=== PATIENT | male | born 1955 | race Caucasian/White ===

== ENCOUNTER 2017-08-25 16:03 | Emergency (ER) | payer BC ==
[2017-08-25 17:37] VITALS: BP 128/90
--- NOTE | 2017-08-25 18:17 | UC ---
Throat Pain/Nasal Brendan HPI - HPI Summary HPI Summary: Pt c/o nasal congestion sinus congestion and tenderness X 3 weeks. - History of Current Complaint Chief Complaint: UCGeneralIllness Stated Complaint: SINUS Time Seen by Provider: 08/25/17 18:10 Hx Obtained From: Patient Onset/Duration: Gradual Onset, Lasting Weeks - 3 weeks, Still Present, Worse Since - onset Severity: Moderate Pain Intensity: 0 Associated Signs & Symptoms: Positive: Sinus Discomfort - Epiglottits Risk Factors Epiglottis Risk Factors: Negative - Allergies/Home Medications Allergies/Adverse Reactions: Allergies Allergy/AdvReac Type Severity Reaction Status Date / Time No Known Allergies Allergy Verified 08/25/17 17:37 Home Medications: Home Medications Depression Medication 08/25/17 [History] Methylphenidate TAB* [Ritalin TAB*] 08/25/17 [History] PMH/Surg Hx/FS Hx/Imm Hx Previously Healthy: Yes - Surgical History Surgical History: Yes Surgery Procedure, Year, and Place: SINUS SURGERY - Family History Known Family History: Positive: Cardiac Disease - Social History Occupation: Employed Full-time Lives: With Family Alcohol Use: None Substance Use Type: None Smoking Status (MU): Never Smoked Tobacco Have You Smoked in the Last Year: No Review of Systems Constitutional: Chills, Fatigue Skin: Negative Eyes: Negative ENT: Sinus Congestion, Sinus Pain/Tenderness Respiratory: Negative Cardiovascular: Negative Gastrointestinal: Negative Genitourinary: Negative Motor: Negative Neurovascular: Negative Musculoskeletal: Negative Neurological: Headache Psychological: Negative Is Patient Immunocompromised?: No All Other Systems Reviewed And Are Negative: Yes Physical Exam Triage Information Reviewed: Yes Appearance: Well-Appearing Vital Signs: Initial Vital Signs Temp 97.8 F 08/25/17 17:30 Pulse 71 08/25/17 17:30 Resp 18 08/25/17 17:30 BP 128/90 08/25/17 17:30 Pulse Ox 100 08/25/17 17:30 Vital Signs Reviewed: Yes Eye Exam: Normal ENT Exam: Other ENT: Positive: Nasal congestion, Sinus tenderness Dental Exam: Normal Neck exam: Normal Respiratory Exam: Normal Cardiovascular Exam: Normal Musculoskeletal Exam: Normal Neurological Exam: Normal Psychological Exam: Normal Skin Exam: Normal Throat Pain/Nasal Course/Dx - Differential Dx/Diagnosis Differential Diagnosis/HQI/PQRI: Influenza, Sinusitis, URI Provider Diagnoses: Sinusitis Discharge - Discharge Plan Condition: Stable Disposition: HOME Prescriptions: Amoxicillin PO (*) [Amoxicillin 875 MG (*)] 875 mg PO Q12H #20 tab guaiFENesin ER TAB [Mucinex*] 600 mg PO Q12H #14 tab Patient Education Materials: Sinusitis (ED) Referrals: Windy Win MD [Primary Care Provider] - If Needed
== END 2017-08-25 18:27 | disposition home or self-care (01) ==
LOC: UCCORT 16:03
DX: J32.9 Chronic sinusitis, unspecified (principal); R53.83 Other fatigue
CPT/HCPCS: 99202; G0463

== ENCOUNTER 2017-12-09 14:39 | Emergency (ER) | payer BC ==
--- OUTSIDE RECORDS SUMMARY | 2017-12-09 14:52 | XMS REPORT ---
:1955 External Reference #:[id number] Author Organization [facility] Address [address] [address] Phone [phone] Care Team Providers Name Role Phone Windy Win MD Care Team Information Cpo Unavailable Payers Type Date Identification Numbers Payment Provider Subscriber Health Maintenance Policy Number: [id number] [facility] Noé Lutz Organization (O) Plan PayID: [id number] [address] [place] [address] Problems Date Description Provider Status Onset: 11/26/2010 Impotence of organic origin Windy Win MD Active Onset: 04/25/2005 Allergic rhinitis due to pollen Windy Win MD Active Onset: 04/25/2005 Mixed hyperlipidemia Windy Win MD Active Onset: 01/12/2015 Tinnitus Windy Win MD Active Onset: 01/12/2015 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 Cigarette Use Never Smoked Cigarettes ETOH Use Occasionally consumes alcohol Smoking Patient has never smoked General Hx Text Born in [place] - moved to the [place] 6 years ago. Allergies, Adverse Reactions, Alerts Date Description Reaction Status Severity Comments 12/03/2014 NKDA active Medications Medication Date Status Form Strength Qnty SIG Indications Ordering Provider Fluticasone 12/01 Active Suspension 50mcg/Act 3unit 2 sprays to Dez Win s each MD Windy nostril daily for nasal congestion Escitalopram 12/01 Active Tablets 20mg 90tab 1 by mouth F32.0 Quirino Oxalate s every day MD Windy Azithromycin 12/01 Active Tablets 250mg 6tabs 2 by mouth J01.90 today, then MD Windy 1 by mouth daily x 4 more days Methylphenidate 06/01 Active Capsules ER 40mg 90cap 1 by mouth F90.0 Quirino, HCL ER (CD) /2016 s every day - MD Windy code b Cialis 01/12 Active Tablets 2.5mg 90tab 1 by mouth Quirino, s daily MD Windy Betamethasone 11/29 Active Cream 0.1% 45uni apply twice Marlyn Win ts a day as MD Windy needed rash Clonazepam Active Powder 4 drops at G47.00 Unknown /0000 bedtime Escitalopram 02/16 Hx Tablets 10mg 90tab 1 by mouth F32.0 Quirino Oxalate s every day MD Windy - 12/01 Methylphenidate 01/06 Hx Capsules ER 30mg 90cap 1 by mouth F90.0 Quirino, HCL ER (CD) /2016 s every day; MD Windy - code b, dc 06/01 40 mg dose /2016 Escitalopram 01/06 Hx Tablets 10mg 30tab 1 by mouth F32.0 Quirino, Oxalate s every day MD Windy - 01/11 Methylphenidate 12/09 Hx Capsules ER 40mg 90cap 1 by mouth F90.0 Quirino, HCL ER (CD) /2016 s every day - MD Windy - please 01/06 disregard prescriptio n for 30 mg Azithromycin 10/07 Hx Tablets 250mg 6tabs 2 by mouth J20.9 today, then MD Windy - 1 by mouth 12/09 daily x more days Flonase Allergy 09/07 Hx Suspension 50mcg/Act 3unit 2 sprays to Quirino s each MD Windy - nostril 12/01 daily for nasal congestion Methylphenidate 06/10 Hx Capsules ER 30mg 90cap 1 by mouth F90.0 Quirino, HCL ER (CD) s every day; MD Windy - code b 12/09 Cetirizine HCL 03/16 Hx Tablets 10mg 30tab 1 by mouth L50.9 s every day MD Windy - for at 12/09 least month for hives. then daily as needed Ranitidine HCL 03/16 Hx Tablets 75mg 60tab 1 by mouth L50.9 s twice a day MD Windy - for 1 mo 12/09 for hives, then bid as needed Azithromycin 10/27 Hx Tablets 250mg 6tabs 2 by mouth J01.90 today, then MD Windy - 1 by mouth 03/09 daily x more days J 10/27 Hx Capsules ER 20mg 90cap 1 po daily; N52.9 Quirino, s code B MD Windy - 10/27 Methylphenidate 10/27 Hx Capsules ER 20mg 90cap 1 by mouth N52.9 Quirino, HCL ER (CD) s daily; code MD Windy - b 06/10 F90.0 Wellbutrin 04/06/2015 - Hx Tablets 75mg 90tabs 1 po daily 296.31 Quirino, 04/06/2015 for 1 month MD Windy then stop Wellbutrin XL 04/06/2015 - Hx Tablets ER 150mg 90tabs 1 by mouth Quirino, 06/05/2015 24HR every day MD Windy Methylphenidate 03/04/2015 - Hx Capsules ER 20mg 90caps 1 po daily; 799.51 Quirino, HCL ER (CD) 06/05/2015 code B MD Windy Methylphenidate 01/12/2015 - Hx Capsules ER 30mg 90caps 1 po daily; 799.51 Quirino, HCL ER (CD) 03/04/2015 code B MD Windy Wellbutrin 12/08/2014 - Hx Tablets 75mg 30tabs 1 po daily 296.31 Quirino, 01/12/2015 for 1 month MD Windy then stop Wellbutrin XL 06/30/2014 - Hx Tablets ER 150mg 90tabs 1 by mouth 296.31 Quirino, 12/08/2014 24HR every day MD Windy Flonase 10/01/2013 - Hx Suspension 50mcg/ 3units 2 sprays to Quirino, 09/07/2016 Act each nostril MD Windy daily for nasal congestion Cialis 08/31/2010 - Hx Tablets 20mg 12tabs take 1 Quirino, 01/12/2015 tablet by MD Windy mouth if needed as directed Clonazepam - Hx Tablets 0.25mg 5 drops q hs Unknown 09/07/2016 Dispers for sleep - given liquid 2.5 mg / 5 ml Immunizations CPT Code Status Date Vaccine Lot # [id number] Given 07/29/2016 Fluvirin Immunization 32460 Given 08/11/2011 Afluria Or Fluvirin Flu Vac Intramuscular 75662 Given 04/11/2010 Afluria Or Fluvirin Flu Vac Intramuscular 19242 Given 08/04/2009 Administration Swine Flu Vaccine [id number] Given 06/06/2008 Afluria Or Fluvirin Flu Vac Intramuscular 11014 Given 07/03/2006 Afluria Or Fluvirin Flu Vac Intramuscular 01734 Refused 12/01/2017 Afluria Or Fluvirin Flu Vac Intramuscular 72303 Refused 09/07/2016 Tetanus And Diptheria Toxoids For Adult Use- preservative free Vital Signs Date Vital Result Comment 12/01/2017 Weight 178.00 lb Heart Rate 88 /min BP Systolic 110 mmHg BP Diastolic 70 mmHg Respiratory Rate 18 /min Height 71 inches 5'11" 12/01/17 BMI (Body Mass Index) 24.8 kg/m2 09/01/2017 Weight 171.00 lb Heart Rate 80 /min BP Systolic 110 mmHg BP Diastolic 70 mmHg Respiratory Rate 18 /min 08/14/2017 Body Temperature 98.2 F Weight 170.00 lb Heart Rate 80 /min BP Systolic 112 mmHg BP Diastolic 70 mmHg Respiratory Rate 18 /min O2 % BldC Oximetry 98 % 2017 Weight 165.00 lb Heart Rate 64 /min BP Systolic 112 mmHg BP Diastolic 70 mmHg Respiratory Rate 18 /min Height 71 inches 5'11" 09/07/16 BMI (Body Mass Index) 23.0 kg/m2 02/16/2017 Weight 170.00 lb Heart Rate 76 /min BP Systolic 110 mmHg BP Diastolic 70 mmHg Respiratory Rate 18 /min Height 71 inches 5'11" 09/07/16 BMI (Body Mass Index) 23.7 kg/m2 01/11/2017 Weight 176.00 lb Heart Rate 80 /min BP Systolic 110 mmHg BP Diastolic 70 mmHg Respiratory Rate 18 /min Height 71 inches 5'11" 09/07/16 BMI (Body Mass Index) 24.5 kg/m2 01/06/2017 Weight 179.00 lb Heart Rate 72 /min BP Systolic 112 mmHg BP Diastolic 74 mmHg Respiratory Rate 16 /min Height 71 inches 5'11" 09/07/16 BMI (Body Mass Index) 25.0 kg/m2 12/09/2016 Weight 178.00 lb Heart Rate 74 /min BP Systolic 110 mmHg BP Diastolic 70 mmHg Respiratory Rate 18 /min Height 71 inches 5'11" 09/07/16 BMI (Body Mass Index) 24.8 kg/m2 10/07/2016 Body Temperature 96.8 F Weight 176.00 lb Heart Rate 70 /min BP Systolic 102 mmHg BP Diastolic 60 mmHg Respiratory Rate 18 /min Height 71 inches 5'11" 09/07/16 O2 % BldC Oximetry 98 % BMI (Body Mass Index) 24.5 kg/m2 09/07/2016 Weight 176.00 lb Heart Rate 76 /min BP Systolic 112 mmHg BP Diastolic 62 mmHg Respiratory Rate 18 /min Height 71 inches 5'11" 09/07/16 BMI (Body Mass Index) 24.5 kg/m2 06/10/2016 Weight 170.00 lb Heart Rate 74 /min BP Systolic 122 mmHg BP Diastolic 70 mmHg Respiratory Rate 18 /min Height 71 inches 5'11" 06/08 BMI (Body Mass Index) 23.7 kg/m2 03/16/2016 Body Temperature 96.7 F Weight 168.00 lb Heart Rate 78 /min BP Systolic 110 mmHg BP Diastolic 70 mmHg Respiratory Rate 18 /min Height 71 inches 5'11" 10/28/15 BMI (Body Mass Index) 23.4 kg/m2 03/09/2016 Weight 169.00 lb Heart Rate 76 /min BP Systolic 112 mmHg BP Diastolic 60 mmHg Respiratory Rate 18 /min Height 71 inches 5'11" 10/28/15 BMI (Body Mass Index) 23.6 kg/m2 10/28/2015 Body Temperature 97.1 F Weight 164.00 lb Heart Rate 76 /min BP Systolic 102 mmHg BP Diastolic 62 mmHg Respiratory Rate 18 /min Height 71 inches 5'11" 10/28/15 O2 % BldC Oximetry 99 % BMI (Body Mass Index) 22.9 kg/m2 06/05/2015 Weight 160.00 lb Heart Rate 80 /min BP Systolic 110 mmHg BP Diastolic 60 mmHg Respiratory Rate 18 /min Height 71 inches 5'11" 01/12/15 BMI (Body Mass Index) 22.3 kg/m2 04/06/2015 Weight 161.00 lb Heart Rate 80 /min BP Systolic 120 mmHg BP Diastolic 68 mmHg Respiratory Rate 18 /min Height 71 inches 5'11" 01/12/15 BMI (Body Mass Index) 22.5 kg/m2 03/04/2015 Weight 162.00 lb Heart Rate 60 /min BP Systolic 102 mmHg BP Diastolic 70 mmHg Height 71 inches 5'11" 01/12/15 BMI (Body Mass Index) 22.6 kg/m2 01/12/2015 Weight 164.00 lb Heart Rate 76 /min BP Systolic 112 mmHg BP Diastolic 70 mmHg Respiratory Rate 18 /min Height 71 inches 5'11" 01/12/15 BMI (Body Mass Index) 22.9 kg/m2 12/08/2014 Weight 162.00 lb Heart Rate 72 /min BP Systolic 102 mmHg BP Diastolic 58 mmHg Respiratory Rate 18 /min 06/30/2014 Weight 168.00 lb Heart Rate 68 /min BP Systolic 120 mmHg BP Diastolic 70 mmHg Respiratory Rate 18 /min Height 70.5 inches 5'10.50" (Done On 09/02/13) 01/10/2014 Weight 158.00 lb Heart Rate 84 /min BP Systolic 102 mmHg BP Diastolic 60 mmHg Respiratory Rate 18 /min Height 70.5 inches 5'10.50" (Done On 09/02/13) Results Test Date Test Result H/L Range Note Laboratory test finding 12/03/2014 PSA 1.410 ng/mL 0.000-4.000 1 Laboratory test finding 01/10/2014 Anion Gap 11 mEq/L 8-16 BUN 24 mg/dL High 5-23 BUN/Creat 21.8 ratio Calcium 9.6 mg/dL 8.5-10.1 Carbon Dioxide 29 mEq/L 18-29 Chloride 100 mmol/L 98-107 Creatinine 1.1 mg/dL 0.5-1.4 Glom Filtration Rate, Estimate >60 mL/min >60 Glucose 88 mg/dL 76-115 If >60 mL/min >60 2 Potassium 4.4 mmol/L 3.5-5.1 Prostate-Specific Antigen 2.32 ng/mL 0.00-4.00 3 Sodium 136 mmol/L 136-145 1 Beginning 09/18/06 PSA values assayed at [facility] uses an EIA methodology manufactured by [employer] for use on the DXI analyzer. Values obtained with different assay methods or kits can not be used interchangeably. Serum PSA measurement is not an absolute test for malignancy. The PSA value should be used in conjunction with information available from clinical evaluation and other diagnostic procedures. 2 Note: Persistent reduction for 3 months or more in an eGFR <60 mL/min/ 1.73 m2 defines CKD. Patients with eGFR values >/=60 mL/min/1.73 m2 may also have CKD if evidence of persistent proteinuria is present. The original MDRD equation for estimated GFR is not valid for patients less than 18 years of age. Additional information may be found at www.kdoqi.org. 3 THIS ASSAY IS NOT INTENDED A CANCER SCREENING TEST The concentration of PSA in a given specimen, determined with assays from different manufacturers, can vary due to differences in assay methods and reagent specificity. Values obtained from different assay methods cannot be used interchangeably. Procedures Date CPT Code Description Status Comment 12/01/2017 08065 Brief Emotional/Behav Completed Assessment W/ Scoring Doc Per Standard Inst 08/14/2017 72286 Measure Blood Oxygen Level Completed Single Determination 10/07/2016 44837 Measure Blood Oxygen Level Completed Single Determination 01/07/2016 Colonoscopy Completed done in [place] - was told this is normal - was not told to repeat thisDocument: 10/07/16 - Colonoscopy 10/28/2015 78953 Measure Blood Oxygen Level Completed Single Determination Encounters Type Date Location Provider CPT E/M Dx Office Visit 09/01/2017 8:45a [place] [address] F32.0 N52.9 J30.1 E78.2 F90.0 Office Visit 08/14/2017 3:45p [place] [address] R05 H91.90 Office Visit 2017 10:15[place] [address] N52.9 J30.1 E78.2 H93.19 F90.0 F32.0 G47.00 Office Visit 02/16/2017 1:00p [facility] [place] [address] N52.9 J30.1 E78.2 F90.0 F32.0 G47.00 Office Visit 01/11/2017 10:45a [facility] [place] [address] R74.0 F32.0 Office Visit 01/06/2017 2:45p [facility] [place] [address] F90.0 F32.0 Office Visit 12/09/2016 1:00p [facility] [place] [address] N52.9 J30.1 E78.2 H93.19 F90.0 G47.00 Office Visit 10/07/2016 9:45a [facility] [place] [address] J20.9 Office Visit 09/07/2016 9:30a [facility] [place] [address] F90.0 Office Visit 06/10/2016 8:15a [facility] [place] [address] Z00.00 N52.9 J30.1 F90.0 G47.00 Office Visit 03/16/2016 10:30a [facility] [place] [address] L50.9 Office Visit 03/09/2016 11:15a [facility] [place] [address] F90.0 Office Visit 10/28/2015 10:00a [facility] [place] [address] J01.90 F90.0 N52.9 Office Visit 06/05/2015 9:00a [facility] [place] [address] F33.0 J30.1 E78.2 G47.00 F90.0 H93.13 N52.9 Office Visit 04/06/2015 9:30a [facility] [place] [address] 607.84 296.31 272.2 780.52 314.00 388.30 477.0 Office Visit 03/04/2015 11:30a [facility] [place] [address] 799.51 Office Visit 01/12/2015 9:30a [facility] [place] [address] 296.31 388.30 780.52 799.51 Office Visit 12/08/2014 8:15a [facility] [place] [address] 607.84 296.31 477.0 272.2 388.30 Plan of Care Future Appointment(s):03/05/2018 4:15 pm - Windy Win MD at [facility]12/01/2017 - Windy Win MDN52.9 Male erectile dysfunction, unspecifiedComments: continue cialis. refill mwifvP02.1 Allergic rhinitis due to pollenComments: refill flonase cqtivP30.2 Mixed hyperlipidemiaComments:diet controlled - follow labs.F90.0 Attn-defct hyperactivity disorder, predom inattentive typeComments: medication is helpful - will refill . [place] [employer] checked and in compliance. Stable. Continue current treatment. Reference #: [id number] Major depressive disorder, single episode, mildNew Medication:Escitalopram Oxalate 20 mgComments:worsening - increase dose of escitalopram to 20 mg hwbmbL48.90 Acute sinusitis, unspecifiedNew Medication:Azithromycin 250 mgComments:will treat with antibioticsAllFollow up:3 mo follow-up without labs prior
[2017-12-09 15:17] VITALS: BP 126/68
--- NOTE | 2017-12-09 15:26 | UC ---
Throat Pain/Nasal Brendan HPI - HPI Summary HPI Summary: 62 y/o female presents to the urgent care c/o sinus congestion, sinus pain w/ green nasal discharge and moderated +PND for the past 3 weeks. Pt reports he saw his PCP on 12/01/2017 who Rx Z-tika for his sinusitis. However symptoms are getting worse after he finished the Tx. He thinks he need a longer Tx. Pt has been taking Zyrtec for his seasonal allergies. Pain is 8/10 and he has also taking Mucinex PO to alleviate symptoms. Pt denies fever, dizziness, SOB, chest pain, abdominal pain, N/V/D - History of Current Complaint Chief Complaint: UCRespiratory Stated Complaint: SINUSES Time Seen by Provider: 12/09/17 15:10 Hx Obtained From: Patient Onset/Duration: Gradual Onset, Lasting Weeks - 3 weeks, Still Present, Worse Since - last week Severity: Moderate Pain Intensity: 8 Pain Scale Used: 0-10 Numeric Cough: Nonproductive Associated Signs & Symptoms: Positive: Sinus Discomfort, Nasal Discharge - green nasal discharge. Negative: Fever Related History: Seasonal Allergies - Epiglottits Risk Factors Epiglottis Risk Factors: Negative - Allergies/Home Medications Allergies/Adverse Reactions: Allergies Allergy/AdvReac Type Severity Reaction Status Date / Time No Known Allergies Allergy Verified 12/09/17 15:17 Home Medications: Home Medications Escitalopram Oxalate [Lexapro 10 mg] 10 mg PO DAILY 12/09/17 [History Confirmed 12/09/17] Fluticasone NASAL SPRAY 50MCG* [Flonase NASAL SPRAY 50MCG*] 2 spray BOTH NARES DAILY 12/09/17 [History Confirmed 12/09/17] Methylphenidate TAB* [Ritalin TAB*] 40 mg PO DAILY 12/09/17 [History Confirmed 12/09/17] Tadalafil [Cialis] 2.5 mg PO DAILY 12/09/17 [History Confirmed 12/09/17] guaiFENesin ER TAB [Mucinex*] 600 mg PO BID 12/09/17 [History Confirmed 12/09/17 ] PMH/Surg Hx/FS Hx/Imm Hx Previously Healthy: Yes Endocrine History: Dyslipidemia - diet control Psychological History: Anxiety, Depression Other Psychological History: ADHD - Surgical History Surgical History: None - Family History Family History: Dyslipidemia - Social History Occupation: Employed Full-time Lives: With Family Alcohol Use: None Substance Use Type: None Smoking Status (MU): Never Smoked Tobacco Review of Systems Constitutional: Negative Skin: Negative Eyes: Negative ENT: Nasal Discharge, Sinus Congestion, Sinus Pain/Tenderness Respiratory: Cough - dry Cardiovascular: Negative Gastrointestinal: Negative Genitourinary: Negative Motor: Negative Neurovascular: Negative Musculoskeletal: Negative Neurological: Headache Psychological: Negative Is Patient Immunocompromised?: No All Other Systems Reviewed And Are Negative: Yes Physical Exam - Summary Physical Exam Summary: Vitals: reviewed General: Well developed, well-nourished male patient with NAD. Head and face: Normocephalic and atraumatic, Positive tenderness over the frontal and maxillary sinuses.. Eyes: PERRLA, EOMI x 2. Normal conjunctiva. No eye discharge. ENT: Ears and TM with normal limits. Nose: edematous and erythematous nasal mucosa with with yellowish discharge and erythematous mucosa. Pharynx with erythema, no exudate. +PND green Neck: Supple, no JVD, no carotid bruits and no lymphadenopathy. Lungs: clear, no rales, no rhonchi, no wheezes. CVS: RRR, S1 and S2 present no murmurs or gallops appreciated. Abdomen: soft nontender with positive bowel sounds. Extremities: no edema noted. Neuro: WNL. Skin: warm and dry Triage Information Reviewed: Yes Vital Signs: Initial Vital Signs Temp 97.9 F 12/09/17 15:14 Pulse 70 12/09/17 15:14 Resp 16 12/09/17 15:14 BP 126/68 12/09/17 15:14 Pulse Ox 100 12/09/17 15:14 Throat Pain/Nasal Course/Dx - Course Course Of Treatment: 62 y/o female presents to the urgent care c/o sinus congestion, sinus pain w/ green nasal discharge and moderated +PND for the past 3 weeks. Pt reports he saw his PCP on 12/01/2017 who Rx Z-tika for his sinusitis. However symptoms are getting worse after he finished the Tx. He thinks he need a longer Tx. Pt has been taking Zyrtec for his seasonal allergies. Pain is 8/10 and he has also taking Mucinex PO to alleviate symptoms. Pt denies fever, dizziness, SOB, chest pain, abdominal pain, N/V/D. Hx obtained. Pt w/ acute sinusitis on examination. Pt with 3 weeks of symptoms getting worse. Pt Rx Augmentin PO and flonase nasal spray. Advised to continue taking Zyrtec PO. Discharge instructions explained to Pt. Advised to Return to the clinic or PCP if symptoms do not improve.Pt understood and agreed with plan of care. - Differential Dx/Diagnosis Differential Diagnosis/HQI/PQRI: Influenza, Laryngitis, Pharyngitis, Sinusitis, URI Provider Diagnoses: 1- Acute bacterial sinusitis Discharge - Sign-Out/Discharge Documenting (check all that apply): Discharge/Admit/Transfer - D/C home - Discharge Plan Condition: Stable Disposition: HOME Prescriptions: Amoxicillin/Clavulanate TAB* [Augmentin TAB 875*] 875 mg PO BID #20 tab Fluticasone NASAL SPRAY 50MCG* [Flonase NASAL SPRAY 50MCG*] 2 spray BOTH NARES DAILY #1 btl Patient Education Materials: Sinusitis (ED) Referrals: Windy Win MD [Primary Care Provider] - 1 Week Additional Instructions: 1- Please increase fluid intake and rest. take full course of antibiotic to avoid resistance 2-Use Flonase as directed to help drain fluid. Also buy saline drops to clear sinuses 3-Continue taking Zyterc PO to alleviates sinus congestion 4-Return to the clinic or PCP if symptoms do not improve for further management and treatment - Billing Disposition and Condition Condition: STABLE Disposition: HOME
== END 2017-12-09 15:49 | disposition home or self-care (01) ==
LOC: UCCORT 14:39 → MERGE 14:39 → UCCORT 15:49
DX: J01.90 Acute sinusitis, unspecified (principal); B96.89 Other specified bacterial agents as the cause of diseases classified elsewhere
CPT/HCPCS: 99202; G0463